=== PATIENT | male | born 1955 | race Caucasian/White ===

== ENCOUNTER 2016-08-28 20:45 | Inpatient (IN) | payer OTHER ==
[~2016-08-28] VITALS: Ht 175.3 cm; Wt 76.0 kg
[~2016-08-28 20:45] MED LIST: ALBU8.5H5 IH; ASPI-535 PO; ATOR80TA75 PO; BISA5TAB6 PO; CLOP75TA27 PO; EPIN0.3P4 IM; FIORICET PO; FLUC100T39 PO; GABA300C16 PO; HYDR-3498 PO; ISOS60TA PO; LEVO500T10 PO; METO25TA4 PO; NIT4 SL; SYMB80120 INH; TAG300 PO; TIOT18CA IH; TRAZ50TA18 PO
[2016-08-29] VITALS (22 sets, daily range): BP systolic 131–159; BP diastolic 76–98; PULSE 56–85; RESP 11–23; TEMP 98.9; Ht 175.3 cm; Wt 76.0 kg
[2016-08-29] MEDS ORDERED: SOD CHLORIDE 0.9% 1,000 ML IV STA (00:23)
[2016-08-29] MEDS ORDERED: OCTREOTIDE 500 MCG in SOD CHLORIDE 0.9% 49 ML IV STA (00:23)
[2016-08-29] MEDS ORDERED: PANTOPRAZOLE IV 80 MG in SOD CHLORIDE 0.9% 100 ML IV STA (00:23)
[2016-08-29] MEDS ORDERED: PANTOPRAZOLE IV 80 MG in SOD CHLORIDE 0.9% 100 ML IVPB STA (00:23)
[2016-08-29] MEDS ORDERED: ONDANSETRON INJ 8 MG in DEXTROSE 5% 50 ML IVPB STA (00:23)
[2016-08-29] MEDS ORDERED: OCTREOTIDE 50 MCG in SOD CHLORIDE 0.9% 25 ML IVPB STA (00:23)
[2016-08-29 00:57] LABS: ADD SCAN DIFF NO
[2016-08-29 01:00] LABS: BASOPHILS % 0.1 % (0.0-2.0); EOSINOPHILS # 0.5 10^3/ul (0.0-0.5); EOSINOPHILS % 6.4 % (0.0-7.0); HEMOGLOBIN 14.4 g/dl (14.0-18.0); LYMPHOCYTES # 0.9 10^3/ul (0.8-2.9); LYMPHOCYTES % 11.2 % (15.0-51.0); MEAN CORPUSCULAR HEMOGLOBIN 28.6 pg (29.0-33.0); MEAN CORPUSCULAR HGB CONC 32.7 g/dl (32.0-37.0); MEAN CORPUSCULAR VOLUME 87.3 fl (82.0-101.0); MONOCYTE # 0.4 10^3/ul (0.3-0.9); MONOCYTES % 5.3 % (0.0-11.0); NEUTROPHIL # 6.2 10^3/ul (1.6-7.5); NEUTROPHILS % 76.8 % (39.0-77.0); PLATELET COUNT 285 10^3/UL (140-415); RED BLOOD COUNT 5.04 10^6/ul (4.70-6.10); RED CELL DISTRIBUTION WIDTH 14.8 % (11.5-14.5); WHITE BLOOD COUNT 8.1 10^3/ul (4.8-10.8)
[2016-08-29 01:25] LABS: ALANINE AMINOTRANSFERASE 15 IU/L (13-69); ALBUMIN 4.4 g/dl (3.3-4.9); ALKALINE PHOSPHATASE 138 IU/L (42-121); ANION GAP 12 (8-16); ASPARTATE AMINO TRANSFERASE 16 IU/L (15-46); BILIRUBIN,INDIRECT 0.3 mg/dl (0-1.1); BILIRUBIN,TOTAL 0.3 mg/dl (0.2-1.3); BLOOD UREA NITROGEN 11 mg/dl (7-20); CALCIUM 9.7 mg/dl (8.4-10.2); CARBON DIOXIDE 26 mmol/L (21-31); CHLORIDE 104 mmol/L (97-110); CREATININE 1.23 mg/dl (0.61-1.24); GLUCOSE 112 mg/dl (70-220); POTASSIUM 4.3 mmol/L (3.5-5.1); SODIUM 138 mmol/L (135-144); TOTAL PROTEIN 8.4 g/dl (6.1-8.1)
[2016-08-29 01:52] LABS: TROPONIN-I < 0.012 ng/ml (0.00-0.12)
[2016-08-29 02:06] LABS: INR 1.01; PARTIAL THROMBOPLASTIN TIME 34.3 Sec (25.0-35.0); PROTIME 13.3 Sec (12.2-14.2)
--- NOTE | 2016-08-29 02:20 | RADRPT ---
PROCEDURE: XR Chest. CLINICAL INDICATION: Upper GI bleed. TECHNIQUE: Single frontal chest x-ray. COMPARISON: 01/28/2015 FINDINGS: The cardiomediastinal silhouette is unremarkable. A small hiatal hernia is present.. No focal infil trate is seen. There is no pleural effusion. There is no pneumothorax. The osseous structures are unremarkable. IMPRESSION: 1. No active disease. 2. Small hiatal hernia. RPTAT: HMVK .Per Fong MD, Date Time Electronically viewed and signed by .Per Fong MD, on 08/29/2016 02:20 .K/
[2016-08-29] MEDS: ONDANSETRON 4 MG INJ IV PRN ×3 (04:55→22:15)
[2016-08-29] MEDS: DEXTROSE 5%-0.45% NACL 1,000 ML IV SCH ×2 (05:36→15:30)
--- NOTE | 2016-08-29 05:57 | HP ---
Date/Time of Note Date/Time of Note DATE: 08/29/16 TIME: 05:50 Assessment/Plan VTE Prophylaxis VTE Prophylaxis Intervention: SCD's Lines/Catheters IV Catheter Type (from [facility]): Peripheral IV Urinary Cath still in place: No Assessment/Plan Chief Complaint/Hosp Course IMPRESSION 1. Upper GI Bleed 2. History of esophageal cancer. 3. History of coronary artery disease. 4. History of COPD 5. History of gastroesophageal reflux disease. 6. History of hypertension. 7. History of dyslipidemia. PLAN NPO with IVF Protonix and Octrotide gtt Monitor h/h GI Consult Breathing txt as needed PRN IV anti-hypertensives while NPO. Will resume home meds as soon as possible Problems: HPI/ROS Admit Date/Time Admit Date/Time Aug 29, 2016 at 01:35 ROS This is a 61-year-old male with a past medical history of COPD, CAD, recently diagnosed with esophageal cancer, GERD, hypertension, hyperlipidemia, and nicotine abuse who came to the emergency room with a chief complaint of vomiting blood. Episode has been going on since yesterday. Denied dark stool or BRBPR. He reported chronic shortness of breath. Denied chest pain, fever, chills , abd pain. In ER, vitals were stable and hgb was 14.4 . PMH/Family/Social Past Medical History COPD, CAD, recently diagnosed with esophageal cancer, GERD, hypertension, hyperlipidemia . Social History Alcohol Use: none Smoking Status: Former smoker Drug Use: none Exam/Review of Systems Vital Signs Vitals Vital Signs Date Time Temp Pulse Resp B/P Pulse Ox O2 Delivery O2 Flow Rate FiO2 08/29/16 03:55 98.3 74 16 143/95 100 Room Air Intake and Output 08/28/16 08/28/16 08/29/16 15:00 23:00 07:00 Intake Total 126 ml Balance 126 ml Exam Constitutional: alert, oriented, well developed Head: atraumatic, normocephalic Eyes: EOMI, PERRL Respiratory: clear to auscultation, normal air movement Cardiovascular: nl pulses, regular rate and rhythm Gastrointestinal: non-tender, soft Extremities: normal pulses Labs Result Diagram: 08/29/16 0032 08/29/16 0032 Medications Medications Current Medications Ondansetron HCl 4 mg 4 mg Q6H PRN IV NAUSEA AND/OR VOMITING Last administered on 08/29/16 04:55; Admin Dose 4 MG; Start 08/29/16 at 04:30 Dextrose/Sodium Chloride 1,000 ml @ 100 mls/hr Q10H IV Last administered on 05:36; Admin Dose 100 MLS/HR; Start 08/29/16 at 05:00 Pantoprazole 80 mg/Sodium Chloride 100 ml @ 10 mls/hr Q10H IV ; Start 08/29/16 at 09:00 Octreotide Acetate/Sodium Chloride (Sandostatin/NS) 50 ml @ 5 mls/hr Q10H IV ; Start 08/29/16 at 12:00 CARMINE MARY MD Aug 29, 2016 05:57
[2016-08-29] MEDS ORDERED: GLYCOPYRROLATE 0.4 MG INJ ONE (07:00)
[2016-08-29] MEDS ORDERED: LIDOCAINE 2% (SDV) 5 ML INJ ONE ×2 (07:00→15:56)
[2016-08-29] MEDS ORDERED: PANTOPRAZOLE IV 80 MG in SOD CHLORIDE 0.9% 100 ML IV SCH (09:00)
[2016-08-29 11:34] LABS: ADD SCAN DIFF NO
[2016-08-29 11:36] LABS: BASOPHILS % 0.1 % (0.0-2.0); EOSINOPHILS # 0.4 10^3/ul (0.0-0.5); EOSINOPHILS % 5.8 % (0.0-7.0); HEMATOCRIT 37.4 % (42.0-52.0); HEMOGLOBIN 12.1 g/dl (14.0-18.0); LYMPHOCYTES # 0.8 10^3/ul (0.8-2.9); LYMPHOCYTES % 11.5 % (15.0-51.0); MEAN CORPUSCULAR HEMOGLOBIN 28.2 pg (29.0-33.0); MEAN CORPUSCULAR HGB CONC 32.4 g/dl (32.0-37.0); MEAN CORPUSCULAR VOLUME 87.2 fl (82.0-101.0); MEAN PLATELET VOLUME 10.2 fl (7.4-10.4); MONOCYTE # 0.4 10^3/ul (0.3-0.9); MONOCYTES % 5.3 % (0.0-11.0); NEUTROPHIL # 5.6 10^3/ul (1.6-7.5); PLATELET COUNT 227 10^3/UL (140-415); RED BLOOD COUNT 4.29 10^6/ul (4.70-6.10); RED CELL DISTRIBUTION WIDTH 14.6 % (11.5-14.5); WHITE BLOOD COUNT 7.3 10^3/ul (4.8-10.8)
[2016-08-29 11:54] LABS: ALBUMIN 3.4 g/dl (3.3-4.9); ALBUMIN/GLOBULIN RATIO 1.03; BILIRUBIN,INDIRECT 0.4 mg/dl (0-1.1); BILIRUBIN,TOTAL 0.4 mg/dl (0.2-1.3); CALCIUM 8.4 mg/dl (8.4-10.2); CREATININE 1.13 mg/dl (0.61-1.24); POTASSIUM 4.6 mmol/L (3.5-5.1); TOTAL PROTEIN 6.7 g/dl (6.1-8.1)
[2016-08-29] MEDS ORDERED: OCTREOTIDE 500 MCG in SOD CHLORIDE 0.9% 49 ML IV SCH (12:00)
[2016-08-29 12:33] LABS: CHOL/HDL RATIO 6.1 RATIO
[2016-08-29] MEDS ORDERED: PROPOFOL 40 ML ONE (15:56)
[2016-08-29] MEDS ORDERED: EPHEDrine SULFATE 50 MG/5 ML SYG IV PRN ×2 (16:30→17:00)
[2016-08-29] MEDS ORDERED: DIPHENHYDRAMINE 50 MG INJ IV PRN (16:30)
[2016-08-29] MEDS ORDERED: OXYCODONE/ACETAMINOPHEN (5/325) TAB PO PRN ×4 (16:30→17:00)
[2016-08-29] MEDS ORDERED: hydrALAzine 20 MG INJ IV PRN ×2 (16:30→17:00)
[2016-08-29] MEDS ORDERED: METOCLOPRAMIDE 10 MG INJ IV PRN ×2 (16:30→17:00)
[2016-08-29] MEDS ORDERED: TRIMETHOBENZAMIDE 100 MG/ML VIAL IM PRN ×2 (16:30→17:00)
[2016-08-29] MEDS ORDERED: ONDANSETRON 4 MG INJ IV PRN ×2 (16:30→17:00)
[2016-08-29] MEDS ORDERED: PROCHLORPERAZINE 10 MG INJ IV PRN ×2 (16:30→17:00)
[2016-08-29] MEDS ORDERED: HYDROmorphONE (0.2 MG/ML) 10ML SYG IV PRN ×6 (16:30→17:00)
[2016-08-29] MEDS ORDERED: ETOMIDATE 20 MG INJ ONE (16:36)
[2016-08-29] MEDS: PANTOPRAZOLE 40 MG INJ IV SCH (18:16)
[2016-08-29] MEDS: SUCRALFATE (100 MG/ML) 10ML CUP PO SCH ×2 (18:16→21:11)
--- NOTE | 2016-08-29 18:16 | CONS ---
Date/Time of Note Date/Time of Note DATE: 08/29/16 TIME: 17:55 Assessment/Plan Assessment/Plan Additional Assessment/Plan Assessment * GI bleed Likely upper vs lower GI * History of esophageal cancer * History of CAD * History of GERD * History of hypertension * History of hyperlipidemia * Plan * EGD risks and benefit explained to the patient and agreed with the planned procedure * continue present management * monitor H and H q6 ,transfuse 2 units of PRBC if hemoglobin less than 7 and 1 unit of PRBC if hemoglobin less than 7.5 Consultation Date/Type/Reason Admit Date/Time Aug 29, 2016 at 01:35 Date of Consultation: Aug 29, 2016 Type of Consultation: Gastroenterology Reason for Consultation upper gi bleed Referring Provider: BERONICA MCCLAIN Hx of Present Illness 61 year old male who came to emergency room with chief complaint of hematemesis.Past medical history includes esophageal cancer,history of esophageal surgery,CAD,COPD, hyperlipidemia,history of reflux disease and seizure disorder.Hematemesis is about 50 cc with associated nausea,body weakness.Denies any hematochezia,, melena,chest pain,fever or chills but reports shortness of breath.Latest hemoglobin was 12.1. On the floor no episode of hematemesis noted but with persistent nausea and vomiting .Denies any abdominal pain,fever or melena nor hematochezia Constitutional: improved, no complaints Eyes: no complaints ENT: no complaints Respiratory: shortness of breath Cardiovascular: no complaints Gastrointestinal: blood, nausea, vomiting Genitourinary: no complaints Musculoskeletal: no complaints Skin: no complaints Neurologic: no complaints Endocrine: no complaints Lymphatic: no complaints Psychological: nl mood/affect, no complaints Immunologic: no complaints Past Medical History Medical History: coronary artery disease, high cholesterol, hypertension, other (GERD,siezure,esophageal cancer) Past Surgical History Past Surgical Hx: other (esophageal surgery sec to esophageal cancer) Social History Alcohol Use: none Smoking Status: Former smoker Drug Use: none Exam/Review of Systems Vital Signs Vitals Vital Signs Date Time Temp Pulse Resp B/P Pulse Ox O2 Delivery O2 Flow Rate FiO2 08/29/16 17:29 68 17 136/87 95 Room Air 08/29/16 17:08 98.3 Intake and Output 08/28/16 08/28/16 08/29/16 15:00 23:00 07:00 Intake Total 126 ml Balance 126 ml Exam Constitutional: alert, oriented, well developed Psych: nl mood/affect, no complaints Head: atraumatic, normocephalic Eyes: EOMI, PERRL, nl conjunctiva, nl lids, nl sclera ENMT: nl external ears & nose Neck: non-tender, supple Respiratory: clear to auscultation, normal air movement Cardiovascular: nl pulses, regular rate and rhythm Gastrointestinal: nl liver, spleen, non-tender, soft Musculoskeletal: nl extremities to inspection, nl gait and stance Extremities: normal pulses Neurological: nl mental status, nl speech, nl strength Skin: nl turgor, No rash or lesions Lymph: nl lymph nodes Results Result Diagram: 08/29/16 1128 08/29/16 1128 Results 24 hrs Laboratory Tests Test 08/29/16 00:32 08/29/16 11:28 White Blood Count 8.1 7.3 Red Blood Count 5.04 # 4.29 L Hemoglobin 14.4 # 12.1 L Hematocrit 44.0 # 37.4 L Mean Corpuscular Volume 87.3 87.2 Mean Corpuscular Hemoglobin 28.6 L 28.2 L Mean Corpuscular Hemoglobin Concent 32.7 32.4 Red Cell Distribution Width 14.8 #H 14.6 H Platelet Count 285 227 # Mean Platelet Volume 10.0 # 10.2 Neutrophils % 76.8 77.0 Lymphocytes % 11.2 L 11.5 L Monocytes % 5.3 5.3 Eosinophils % 6.4 5.8 Basophils % 0.1 0.1 Nucleated Red Blood Cells % 0.0 0.0 Neutrophils # 6.2 5.6 Lymphocytes # 0.9 0.8 Monocytes # 0.4 0.4 Eosinophils # 0.5 0.4 Basophils # 0.0 0.0 Nucleated Red Blood Cells # 0.0 0.0 Prothrombin Time 13.3 Prothrombin Time Ratio 1.0 INR International Normalized Ratio 1.01 Activated Partial Thromboplast Time 34.3 Sodium Level 138 134 L Potassium Level 4.3 4.6 Chloride Level 104 107 Carbon Dioxide Level 26 22 Anion Gap 12 10 Blood Urea Nitrogen 11 10 Creatinine 1.23 1.13 Glucose Level 112 160 Calcium Level 9.7 8.4 Total Bilirubin 0.3 0.4 Direct Bilirubin 0.00 0.00 Indirect Bilirubin 0.3 0.4 Aspartate Amino Transf (AST/SGOT) 16 16 Alanine Aminotransferase (ALT/SGPT) 15 20 Alkaline Phosphatase 138 H 95 Troponin I < 0.012 Total Protein 8.4 H 6.7 # Albumin 4.4 3.4 # Globulin 4.00 H 3.30 H Albumin/Globulin Ratio 1.10 1.03 Hemoglobin A1c 5.7 Triglycerides Level 108 Cholesterol Level 208 H LDL Cholesterol, Calculated 152 HDL Cholesterol 34 Cholesterol/HDL Ratio 6.1 Medications Medications Current Medications Ondansetron HCl 4 mg 4 mg Q6H PRN IV NAUSEA AND/OR VOMITING Last administered on 08/29/16 13:47; Admin Dose 4 MG; Start 08/29/16 at 04:30 Dextrose/Sodium Chloride (D5-1/2ns) 1,000 ml @ 100 mls/hr Q10H IV Last administered on 08/29/16 15:30; Admin Dose 100 MLS/HR; Start 08/29/16 at 05:00 Pantoprazole (Protonix Iv) 40 mg BID@06,18 IV ; Start 08/29/16 at 18:00 Sucralfate (Carafate Susp) 1 gm QID PO ; Start 08/29/16 at 17:00 RIMA ABBOTT MD Aug 29, 2016 18:06
[2016-08-29] MEDS: traZODone 50 MG TAB PO SCH (22:59)
[2016-08-29] MEDS: GABAPENTIN 300 MG CAP PO SCH (22:59)
[2016-08-29] MEDS ORDERED: LORAZEPAM 2 MG INJ IV PRN (23:00)
[2016-08-30] VITALS (12 sets, daily range): BP systolic 110–140; BP diastolic 71–91; PULSE 61–76; RESP 18–20
[2016-08-30] MEDS: DEXTROSE 5%-0.45% NACL 1,000 ML IV SCH (01:00)
--- NOTE | 2016-08-30 04:50 | GILP ---
DATE OF PROCEDURE: 08/29/2016 PROCEDURE: Esophagogastroduodenoscopy with biopsies. BRIEF HISTORY AND INDICATIONS: The patient is being evaluated for hematemesis. The patient has a significant previous history of esophageal CA for which he underwent the almost co mplete esophagectomy with esophagogastric anastomosis. The patient has had episodes of dysphagia in the past and was recently dilated at the [facility] where he ordinarily recei ves his followup. The patient presented to the emergency room with an episode of hematemesis. He h as no dysphagia at the present time. PREMEDICATION: Monitored anesthesia care by anesthesiologist. TECHNIQUE: After informed consent where the patient understands the procedure, potential risks, and complications as well as alternatives, and after informed consent was obtained, the patient was jigar sumeet in the left lateral decubitus. Premedication was administered. Following this, the Olympus phan endoscope was introduced and advanced under visual control. Careful examination of the upper gastro intestinal tract disclosed the following findings. There is evidence of near total esophagectomy with an esophagogastrostomy at approximately 20 cm fro m the incisors. The anastomosis is widely patent. There is significant erythema and edema at the anastomotic line and the esophageal side consistent w ith esophagitis. STOMACH: Upon entrance to the stomach, air was insufflated, the gastric guajardo distended normally. There is erythema and edema of the mucosa of the stomach. Biopsies were obtained to rule out H. pyl mark infection. Clearly, at least 1/2 if not more of the proximal stomach is in the thoracic cavity. PYLORUS: The pylorus appears patent and within normal limits, with no evidence of gastric outlet ob struction. DUODENUM: The duodenal mucosa was carefully examined in the duodenal bulb as well as the second por tion of the duodenum and appears unremarkable with no evidence of duodenitis, ulcer or neoplasm. The instrument was then withdrawn, the patient tolerated the procedure well and was transfer out of the endoscopy suite awake, and in good condition to continue recovery under observation IMPRESSION: 1. Post near total esophagectomy with esophagogastrostomy at 20 cm from the incisors. The anastomo sis is patent. There is significant esophagitis on the esophageal side of the anastomosis. This li opal represents the source of hematemesis 2. Gastritis. Rule out Helicobacter pylori infection, biopsies obtained. PLAN: The patient will be treated with PPIs plus liquid Carafate, and further recommendation will d epend on his clinical course as well as review of biopsies. Dictated By: RIMA DAI Conf#: [id number] DID#: [id number]
[2016-08-30] MEDS: PANTOPRAZOLE 40 MG INJ IV SCH ×2 (05:58→17:17)
[2016-08-30] MEDS: ONDANSETRON 4 MG INJ IV PRN ×2 (07:24→17:17)
[2016-08-30 07:41] LABS: ADD SCAN DIFF NO
[2016-08-30 07:43] LABS: BASOPHILS % 0.4 % (0.0-2.0); EOSINOPHILS # 0.6 10^3/ul (0.0-0.5); EOSINOPHILS % 7.9 % (0.0-7.0); HEMATOCRIT 39.8 % (42.0-52.0); HEMOGLOBIN 13.2 g/dl (14.0-18.0); LYMPHOCYTES # 1.2 10^3/ul (0.8-2.9); LYMPHOCYTES % 14.5 % (15.0-51.0); MEAN CORPUSCULAR HEMOGLOBIN 28.7 pg (29.0-33.0); MEAN CORPUSCULAR HGB CONC 33.2 g/dl (32.0-37.0); MEAN CORPUSCULAR VOLUME 86.5 fl (82.0-101.0); MEAN PLATELET VOLUME 10.1 fl (7.4-10.4); MONOCYTE # 0.6 10^3/ul (0.3-0.9); MONOCYTES % 7.7 % (0.0-11.0); NEUTROPHIL # 5.6 10^3/ul (1.6-7.5); NEUTROPHILS % 69.4 % (39.0-77.0); PLATELET COUNT 256 10^3/UL (140-415); RED CELL DISTRIBUTION WIDTH 14.4 % (11.5-14.5); WHITE BLOOD COUNT 8.1 10^3/ul (4.8-10.8)
[2016-08-30] MEDS: GABAPENTIN 300 MG CAP PO SCH ×3 (07:59→21:10)
[2016-08-30] MEDS: SUCRALFATE (100 MG/ML) 10ML CUP PO SCH ×4 (07:59→21:10)
[2016-08-30 08:12] LABS: POTASSIUM 3.4 mmol/L (3.5-5.1)
[2016-08-30 08:14] LABS: CREATININE 1.16 mg/dl (0.61-1.24)
[2016-08-30 08:15] LABS: CALCIUM 8.7 mg/dl (8.4-10.2)
[2016-08-30] MEDS ORDERED: POTASSIUM CHLORIDE 250 ML IVPB ONE (11:00)
[2016-08-30] MEDS ORDERED: ALBUTEROL/IPRATROPIUM (NEB) 3 ML AMP HHN PRN (11:00)
--- NOTE | 2016-08-30 11:21 | PN ---
DATE: 08/30/2016 SUBJECTIVE: The patient had EGD performed yesterday. No acute events overnight. OBJECTIVE VITAL SIGNS: Stable. GENERAL: The patient is lying in bed sleeping. No acute distress. HEENT: Pupils equal, round, and reactive to light. Extraocular muscles are intact. NECK: Supple, no thyromegaly. LUNGS: Clear to auscultation bilaterally. CARDIOVASCULAR: S1, S2 heard. No rubs or gallops. ABDOMEN: Soft, nontender, nondistended. Normal bowel sounds. No rebound or guarding. MUSCULOSKELETAL: No lower extremity edema bilaterally. NEUROLOGIC: No focal deficits. LABORATORY DATA: CBC is normal today, including normal H and H. Basic metabolic panel is normal ex cept potassium is a little low at 3.4. The EGD yesterday showed post near total esophagectomy with esophagogastrostomy at 20 cm from the incisors. Anastomosis is patent. Significant esophagitis on the esophageal side of the anastomosis likely represents the source of hematemesis and there is also some gastritis. ASSESSMENT AND PLAN: A 61-year-old male with a history of COPD, CAD, recently diagnosed esophageal c ancer, GERD, hypertension, high cholesterol, nicotine abuse who came in with upper gastrointestinal bleeding. 1. Upper gastrointestinal bleed again. Continue Carafate. Follow GI recommendations. Continue PPI IV b.i.d. Monitor for any signs of any further bleeding. Hemoglobin is stable. 2. History of esophageal cancer. Again, continue to monitor for now. Consider Hematology/Oncology consult as necessary. 3. History of coronary artery disease. Continue current medications. Monitor for now. 4. History of chronic obstructive pulmonary disease. Add DuoNeb p.r.n. No signs of any shortness of breath. 5. History of gastroesophageal reflux disease. Again, see #1. 6. History of hypertension. Again, see #3. Hydralazine p.r.n. as well. 7. High cholesterol. Continue to monitor for now. Dictated By: BERONICA STANTON Conf#: [id number] DID#: [id number]
[2016-08-30] MEDS: HYDROCODONE/APAP (5/325) TAB PO PRN (15:12)
--- NOTE | 2016-08-30 16:01 | PN ---
Date/Time of Note Date/Time of Note DATE: 08/30/16 TIME: 15:53 Assessment/Plan VTE Prophylaxis VTE Prophylaxis Intervention: ambulation Lines/Catheters IV [facility] (from [facility] Peripheral IV Urinary Cath still in place: No Assessment/Plan Assessment/Plan Assessment * Hematemesis resolved EGD 08/29/2016 1. Post near total esophagectomy with esophagogastrostomy at 20 cm from the incisors. The anastomosis is patent. There is significant esophagitis on the esophageal side of the anastomosis. This likely represents the source of hematemesis Gastritis. Rule out Helicobacter pylori infection, biopsies obtained. * History of esophageal cancer * History of CAD * History of GERD * History of hypertension * History of hyperlipidemia * Plan * continue PPI for 2 weeks * carafate as ordered * will await biopsy result Subjective 24 Hr Interval Summary Free Text/Dictation * Course reviewed with RN * patient seen and examined * complains of vomiting ,no hematemesis * EGD 08/29/2016 Post near total esophagectomy with esophagogastrostomy at 20 cm from the incisors. The anastomosis is patent. There is significant esophagitis on esophageal side of the anastomosis. This likely represents the source of hematemesis Gastritis. Rule out Helicobacter pylori infection, biopsies obtained Exam/Review of Systems Vital Signs Vitals Vital Signs Date Time Temp Pulse Resp B/P Pulse Ox O2 Delivery O2 Flow Rate FiO2 08/30/16 12:10 68 08/30/16 11:33 98.0 20 131/83 98 08/29/16 18:19 Room Air Intake and Output 08/29/16 08/29/16 08/30/16 15:00 23:00 07:00 Intake Total 250 ml Output Total 800 ml 1000 ml Balance -800 ml -750 ml Exam Constitutional: alert, oriented Psych: no complaints Eyes: PERRL, nl sclera Neck: non-tender, supple Respiratory: clear to auscultation, normal air movement Cardiovascular: nl pulses, regular rate and rhythm Gastrointestinal: nl liver, spleen, non-tender, soft Musculoskeletal: nl extremities to inspection, nl gait and stance Results Result Diagram: 08/30/16 0704 08/30/16 0704 Results 24 hrs Laboratory Tests Test 08/30/16 07:04 White Blood Count 8.1 Red Blood Count 4.60 L Hemoglobin 13.2 L Hematocrit 39.8 L Mean Corpuscular Volume 86.5 Mean Corpuscular Hemoglobin 28.7 L Mean Corpuscular Hemoglobin Concent 33.2 Red Cell Distribution Width 14.4 Platelet Count 256 Mean Platelet Volume 10.1 Neutrophils % 69.4 Lymphocytes % 14.5 L Monocytes % 7.7 Eosinophils % 7.9 H Basophils % 0.4 Nucleated Red Blood Cells % 0.0 Neutrophils # 5.6 Lymphocytes # 1.2 Monocytes # 0.6 Eosinophils # 0.6 H Basophils # 0.0 Nucleated Red Blood Cells # 0.0 Sodium Level 138 Potassium Level 3.4 L Chloride Level 104 Carbon Dioxide Level 26 Anion Gap 11 Blood Urea Nitrogen 8 Creatinine 1.16 Glucose Level 104 # Calcium Level 8.7 Medications Medications Current Medications Ondansetron HCl (Zofran Inj) 4 mg Q6H PRN IV NAUSEA AND/OR VOMITING Last administered on 08/30/16 07:24; Admin Dose 4 MG; Start 08/29/16 at 04:30 Pantoprazole (Protonix Iv) 40 mg BID@06,18 IV Last administered on 08/30/16 05 :58; Admin Dose 40 MG; Start 08/29/16 at 18:00 Sucralfate (Carafate Susp) 1 gm QID PO Last administered on 08/30/16 13:09; Admin Dose 1 GM; Start 08/29/16 at 17:00 Trazodone HCl (Desyrel) 50 mg HS PO Last administered on 08/29/16 22:59; Admin Dose 50 MG; Start 08/29/16 at 23:00 Gabapentin (Neurontin) 300 mg TID PO Last administered on 08/30/16 13:09; Admin Dose 300 MG; Start 08/29/16 at 23:00 Lorazepam (Ativan) 2 mg Q1H PRN IV SEIZURES; Start 08/29/16 at 23:00 Acetaminophen/ Hydrocodone Bitart ([place] (5/325)) 1 tab Q6H PRN PO PAIN LEVEL 6 -10 Last administered on 08/30/16 15:12; Admin Dose 1 TAB; Start 08/30/16 at 15 :00 RIMA ABBOTT MD Aug 30, 2016 16:01
[2016-08-30] MEDS: traZODone 50 MG TAB PO SCH (21:10)
[2016-08-31] VITALS (7 sets, daily range): BP systolic 103–135; BP diastolic 68–80; PULSE 67–75; RESP 20
[2016-08-31] MEDS: HYDROCODONE/APAP (5/325) TAB PO PRN ×3 (01:50→13:18)
[2016-08-31] MEDS: PANTOPRAZOLE 40 MG INJ IV SCH (05:51)
[2016-08-31 08:03] LABS: ADD SCAN DIFF NO
[2016-08-31 08:10] LABS: BASOPHILS % 0.3 % (0.0-2.0); EOSINOPHILS # 0.5 10^3/ul (0.0-0.5); EOSINOPHILS % 6.6 % (0.0-7.0); HEMATOCRIT 40.1 % (42.0-52.0); LYMPHOCYTES # 1.3 10^3/ul (0.8-2.9); LYMPHOCYTES % 18.7 % (15.0-51.0); MEAN CORPUSCULAR HGB CONC 32.4 g/dl (32.0-37.0); MEAN CORPUSCULAR VOLUME 86.4 fl (82.0-101.0); MONOCYTE # 0.6 10^3/ul (0.3-0.9); MONOCYTES % 8.3 % (0.0-11.0); NEUTROPHIL # 4.5 10^3/ul (1.6-7.5); PLATELET COUNT 214 10^3/UL (140-415); RED BLOOD COUNT 4.64 10^6/ul (4.70-6.10); RED CELL DISTRIBUTION WIDTH 14.6 % (11.5-14.5); WHITE BLOOD COUNT 6.8 10^3/ul (4.8-10.8)
[2016-08-31] MEDS: GABAPENTIN 300 MG CAP PO SCH ×2 (08:14→13:17)
[2016-08-31] MEDS: SUCRALFATE (100 MG/ML) 10ML CUP PO SCH ×2 (08:14→13:17)
[2016-08-31 08:31] LABS: POTASSIUM 3.6 mmol/L (3.5-5.1)
[2016-08-31 08:34] LABS: CREATININE 1.17 mg/dl (0.61-1.24)
--- NOTE | 2016-08-31 11:52 | PDOCDIS ---
Discharge Instructions CONDITION Patient Condition: Stable HOME CARE INSTRUCTIONS: Special Diet: 2 GM NA ACTIVITY: Activity Restrictions: Slowly Increase Activity FOLLOW UP/APPOINTMENTS Appointments Please take your medications as prescribed, and see your doctor in the clinic in 1 week. BERONICA MCCLAIN Aug 31, 2016 11:52
[2016-08-31] MEDS ORDERED: PANT40TA3 PO (11:54)
[2016-08-31] MEDS ORDERED: CARAS PO (11:54)
--- NOTE | 2016-08-31 12:18 | DS ---
DATE OF ADMISSION: 08/29/2016 DATE OF DISCHARGE: 08/31/2016 SUBJECTIVE: A 61-year-old male originally admitted on 08/29/2016 being discharged home on 7. The patient came in with signs of upper GI bleeding. He has a prior history of esophageal cance r. He was admitted, placed initially on Protonix and octreotide IV drips. He was seen by GI team a nd underwent endoscopy and specifically there were findings of a post near total esophagectomy with esophagogastrostomy at 20 cm from the . Anastomosis patent. There is significant esophagitis on the esophageal side of the anastomosis, likely represents source of the patient's hematemesis, an d there was also some gastritis. There were some biopsies taken and the pathology was negative for H. pylori or cancer. The patient's bleeding symptoms stopped, his hemoglobin was stable. He was ab le to tolerate a p.o. diet as well and he was started on PPI and Carafate as well given the esophagi tis. Because the patient is clinically improved, he will be discharged home today in improved condi tion. DISCHARGE MEDICATIONS: He will be sent with the following medications: 1. Protonix 40 mg p.o. b.i.d. 2. Carafate 1 gram p.o. q.i.d. 3. Fioricet 1 tab p.o. q.4 p.r.n. 4. Albuterol HFA 2 puffs inhaled q.4h. p.r.n. 5. Aspirin 81 mg daily. 6. Atorvastatin 80 mg at bedtime. 7. Dulcolax 5 mg daily. 8. Symbicort 2 puffs inhaled b.i.d. 9. Tagamet 300 mg at bedtime. 10. Plavix 75 mg daily. 11. Gabapentin 600 mg t.i.d. 12. [place] 5/325 q.6h. p.r.n. 13. Imdur 60 mg daily. 14. Lopressor 25 mg b.i.d. 15. Nitroglycerin 0.4 mg sublingual every 5 minutes p.r.n. 16. Spiriva 18 mcg inhaled daily. 17. Trazodone 100 mg at bedtime. FOLLOWUP: He will need to follow up with his thoracic doctor who is at the [facility]. He will follow up o tuesdays, in about the next 5 days. FINAL DIAGNOSES: 1. Upper gastrointestinal bleeding secondary to esophagitis, status post EGD, now on Carafate and p roton pump inhibitor. 2. History of esophageal cancer status post prior esophagectomy and esophagogastrostomy with anasto mosis found to be patent. 3. History of coronary artery disease 4. History of chronic obstructive pulmonary disease. 5. Gastroesophageal reflux disease. 6. Hypertension. 7. High cholesterol Time spent discharging patient 45 minutes. Dictated By: BERONICA STANTON Conf#: [id number] DID#: [id number]
== END 2016-08-31 14:27 | disposition home or self-care (01) | DRG 392 ==
LOC: E/R 20:45 → TEL 08-29 01:35
PROVIDERS: ADMIT Internal Medicine; ATTEND Internal Medicine
PROC: 0DB68ZX Excision of Stomach, Via Natural or Artificial Opening Endoscopic, Diagnostic (ICD-10-PCS; principal; 2016-08-29 16:00)
DX: K21.0 Gastro-esophageal reflux disease with esophagitis (principal); J44.9 Chronic obstructive pulmonary disease, unspecified; K22.8 Other specified diseases of esophagus; I10 Essential (primary) hypertension; I25.10 Atherosclerotic heart disease of native coronary artery without angina pectoris; I25.2 Old myocardial infarction; K29.70 Gastritis, unspecified, without bleeding; E78.00 Pure hypercholesterolemia, unspecified; Z90.49 Acquired absence of other specified parts of digestive tract; Z85.01 Personal history of malignant neoplasm of esophagus; Z87.891 Personal history of nicotine dependence
CPT/HCPCS: 71010; 80048; 80053; 80061; 83036; 84484; 85025; 85610; 85730; 86850; 86900; 86901; 88305; 88312; C9113; J2354; J2405; J3480; J7030; J7042

== ENCOUNTER 2017-04-20 18:29 | Emergency (ER) | payer OTHER ==
[~2017-04-20] VITALS: Ht 175.3 cm; Wt 71.7 kg
[~2017-04-20 18:29] MED LIST changes: +CARAS PO; -FLUC100T39 PO; -LEVO500T10 PO; -NIT4 SL; +NITR0.4T39 SL; +PANT40TA3 PO
[2017-04-20 18:33] VITALS: Ht 175.3 cm; Wt 71.7 kg
== END 2017-04-21 01:13 | disposition left against medical advice (07) ==
LOC: FTE 18:29
DX: Z53.21 Procedure and treatment not carried out due to patient leaving prior to being seen by health care provider (principal)

== ENCOUNTER 2018-01-02 10:38 | Emergency (ER) | END 2018-01-02 12:44 | disposition home or self-care (01) ==